=== PATIENT | male | born 1955 | race African-American/Black ===

== ENCOUNTER 2017-06-11 08:19 | Emergency (ER) | payer SELFPAY ==
[~2017-06-11] VITALS: Ht 177.8 cm; Wt 100.0 kg
[2017-06-11 08:26] VITALS: BP 128/82; PULSE 78; RESP 18; TEMP 98; O2SAT 98
[2017-06-11] MEDS ORDERED: predniSONE 20 MG TAB PO ONE (08:45)
--- NOTE | 2017-06-11 08:52 | PD ---
HPI Chief Complaint: Injury Time Seen by Provider: 08:33 Travel History International Travel<30 days: No Contact w/Intl Traveler<30days: No Traveled to known affect area: No History of Present Illness HPI 61-year-old -[place] male presents emergency department with history of recurrent gout. Patient states he is taking colchicine in the past with good results. Patient states he is not on allopurinol. Patient states he recently went to [place] and had a large amount of protein in the diet which he knows precipitated this current flare. Patient is complaining of pain in the left ankle and right MIP joint of the great toe. He said this is typical for his previous attacks. Patient denies fever, chills, or other symptoms. Patient is also taken prednisone in the past but not indomethacin. Pain is currently about an 8 out of 10 bilaterally. He has no known drug allergies. [facility] Social History Alcohol Use: Yes Tobacco Use: No Substance Use: No Allergies-Medications (Allergen,Severity, Reaction): Coded Allergies: No Known Allergies (Unverified , 06/11/17) Reported Meds & Prescriptions Reported Meds & Active Scripts Active No Active Prescriptions or Reported Medications Review of Systems Except as stated in HPI: all other systems reviewed are Neg General / Constitutional: No: Fever Eyes: No: Visual changes HENT: No: Headaches Cardiovascular: No: Chest Pain or Discomfort Respiratory: No: Shortness of Breath Gastrointestinal: No: Abdominal Pain Genitourinary: No: Dysuria Musculoskeletal: Positive: Arthralgias, Pain (See history of present illness.) Skin: No Rash Neurologic: No: Weakness Psychiatric: No: Depression Endocrine: No: Polydipsia Hematologic/Lymphatic: No: Easy Bruising Physical Exam Narrative GENERAL: Patient appears in mild distress. SKIN: Warm and dry. Normal color. Normal turgor. Patient has mild erythema in the right MIP joint of the great toe, as well as over the left medial ankle, consistent with his gout per HEAD: Atraumatic. Normocephalic. EYES: Pupils equal and round. No scleral icterus. No injection or drainage. ENT: No nasal bleeding or discharge. Mucous membranes pink and moist. Pharynx is clear. NECK: Trachea midline. Supple nontender.. CARDIOVASCULAR: Regular rate and rhythm. RESPIRATORY: No accessory muscle use. Clear to auscultation. Breath sounds equal bilaterally. GASTROINTESTINAL: Abdomen soft, non-tender, nondistended. Hepatic and splenic margins not palpable. MUSCULOSKELETAL: Extremities without clubbing, cyanosis, or edema. No obvious deformities. Patient complains of pain and tenderness in both feet as described in the HPI. No decreased range of motion. NEUROLOGICAL: Awake and alert. No obvious cranial nerve deficits. Motor grossly within normal limits. Five out of 5 muscle strength in the arms and legs. Normal speech. PSYCHIATRIC: Appropriate mood and affect; insight and judgment normal. Data Data Last Documented VS Vital Signs Date Time Temp Pulse Resp B/P (MAP) Pulse Ox O2 Delivery O2 Flow Rate FiO2 06/11/17 08:26 98.0 78 18 128/82 (97) 98 Orders Orders Prednisone (Deltasone) (06/11/17 08:45) [facility] Medical Decision Making Medical Screen Exam Complete: Yes Emergency Medical Condition: Yes Differential Diagnosis Arthritis. Gouty flare. Foot pain. Ankle pain. Narrative Course Patient is medically stable at time of exam. Lab work at this time is not felt warranted. Patient is given prednisone 40 mg p.o. Patient is given a prescription for colchicine as directed. Patient is given prednisone 20 mg daily for 5 days. Patient is to drink plenty of fluids. Patient to follow-up with local primary care physician as discussed. Diagnosis Primary Impression: Acute gouty arthritis Referrals: [facility] Patient Instructions: General Instructions, Gout (ED), Low Purine Diet (ED) Additional Instructions: Patient is medically stable at time of exam. Lab work at this time is not felt warranted. Patient is given prednisone 40 mg p.o. Patient is given a prescription for colchicine as directed. Patient is given prednisone 20 mg daily for 5 days. Patient is to drink plenty of fluids. Patient to follow-up with local primary care physician as discussed. Med/Other Pt SpecificInfo: Prescription(s) given Scripts No Active Prescriptions or Reported Meds Disposition: 01 DISCHARGE HOME Condition: Stable Logan Terrell Jun 11, 2017 08:52
[2017-06-11] MEDS ORDERED: COLC1CAP3 PO (08:53)
[2017-06-11] MEDS ORDERED: PRED20 PO (08:53)
== END 2017-06-11 09:25 | disposition home or self-care (01) ==
LOC: NEPD 08:19
DX: M10.9 Gout, unspecified (principal)
CPT/HCPCS: 99283; J7512